=== PATIENT | female | born 1995 | race Two or more races ===

== ENCOUNTER 2017-05-16 11:14 | Emergency (ER) | payer MEDICAID ==
[2017-05-16 11:25] VITALS: BP 125/103; PULSE 100; RESP 18; TEMP 99.3; O2SAT 97
[2017-05-16] MEDS ORDERED: ONDANSETRON DISINTEGRATING 4 MG TAB ONE (11:35)
--- NOTE | 2017-05-16 12:46 | EDPHY ---
General Narrative: CHIEF COMPLAINT: Nausea, possible HISTORY OF PRESENT ILLNESS: Patient complains of 3 days history of nausea but no vomiting. No abdominal pain. Gradual onset. Constant duration. She is concerned that she may be , but her last menstrual period was approximately 2-3 weeks ago. He has had subjective fever x1 day. Did not measure this. No sweating. No night chills. No chest pain. No shortness of breath. No urinary complaints. No other associated complaints or modifying factors. REVIEW OF SYSTEMS: Ten systems reviewed and are negative unless otherwise noted in the HPI PCP: None SPECIALISTS: None PAST MEDICAL HISTORY: Denies any medical history. No previous pregnancies PAST SURGICAL HISTORY: None SOCIAL HISTORY: Nonsmoker. No alcohol or illicit substance use. FAMILY HISTORY: Noncontributory EXAMINATION General Appearance: Alert, no distress Head: normocephalic, atraumatic Eyes: Pupils equal and round, no conjunctival pallor or injection. No icterus ENT, Mouth: Mucous membranes moist. Airway patent Neck: Normal inspection, supple, non-tender Respiratory: Lungs are clear to auscultation Cardiovascular: Regular rate and rhythm. No murmur Gastrointestinal: Abdomen is soft and nontender. No distention. No guarding. No rigidity. No CVA tenderness. Benign abdominal examination Skin: Warm and dry, no rash. No petechiae or purpura Extremities: Nontender, no pedal edema Psychiatric: Mood and affect normal DIFFERENTIAL DIAGNOSES: Including but not limited to gastritis, cholecystitis, cholelithiasis, nausea vomiting, MDM: 12:45 p.m. Nausea with no vomiting. No abdominal pain. Negative urine test. Negative urine dip. Symptoms are completely resolved after the Zofran ODT. I recommended an offer laboratory testing, but she is declining any further laboratory studies or test. She would like to be discharged home. I do feel she is stable discharge home given that she is completely symptom free at this time. I will provide her short duration of Zofran ODT prescription. ED precautions for any worsening symptoms, any abdominal pain. She is comfortable with this plan and discharged in stable condition - History Smoking Status: Never smoked - Objective Vital Signs: Initial Vital Signs Temperature (C) 99.3 F 05/16/17 11:22 Heart Rate 100 05/16/17 11:22 Respiratory Rate 18 05/16/17 11:22 Blood Pressure 125/103 H 05/16/17 11:22 O2 Sat (%) 97 05/16/17 11:22 O2 Delivery Mode Room Air Allergies/Adverse Reactions: No Known Allergies Allergy (Unverified 05/16/17 11:22) Home Medications: Medication Instructions Recorded Ondansetron Odt [Zofran Odt 4 mg 4 mg PO Q6 PRN #12 tab 05/16/17 (*)] Departure - Departure Disposition: Home, Routine, Self-Care Clinical Impression: Nausea Condition: Good Instructions: Acute Nausea and Vomiting (ED) Additional Instructions: 1. Zofran ODT as prescribed as needed 2. Contact the on-call primary care physician to establish and to be seen next week 3. Return to emergency department for any worsening symptoms, any abdominal pain or urinary complaints Referrals: NONE *PRIMARY CARE P,. [Primary Care Provider] - As per Instructions Gabriela Anders [place] [place] - As per Instructions [facility],. [Clinic] - As per Instructions Prescriptions: Ondansetron Odt [Zofran Odt 4 mg (*)] 4 mg PO Q6 PRN #12 tab PRN Reason: Nausea/Vomiting, Use 1st
== END 2017-05-16 13:18 | disposition home or self-care (01) ==
DX: R11.0 Nausea (principal)

== ENCOUNTER 2017-06-14 15:11 | Emergency (ER) | payer MEDICAID ==
[2017-06-14 15:31] VITALS: BP 126/60; PULSE 84; RESP 16; TEMP 98.4; O2SAT 97
[2017-06-14 15:41] LABS: COLOR AMBER; LEUKOCYTE ESTERASE,URINE 3+ (NEGATIVE); NITRITE,URINE POSITIVE (NEGATIVE)
[2017-06-14 16:00] LABS: BACTERIA 3+ /hpf (NONE SEEN); MUCUS TRACE /lpf (NONE-1+); WBC,URINE 50-182 /hpf (0-3)
--- NOTE | 2017-06-14 16:17 | EDPHY ---
H & P Smoking Status: Never smoked Time Seen by Provider: 06/14/17 16:15 HPI/ROS: CHIEF COMPLAINT: Left flank pain "I have a really bad urinary tract infection " HISTORY OF PRESENT ILLNESS: 22-year-old immunocompetent female complaining of 2 days of increased for urinary frequency, dysuria, left flank pain. No nausea or vomiting. No abdominal pain. No fever or chills. No flu-like symptoms. No chest pain. No abdominal or back trauma. PRIMARY CARE PROVIDER: REVIEW OF SYSTEMS: A ten point review of systems was performed and is negative with the exception of the items mentioned in the HPI PAST MEDICAL & SURGICAL HISTORY: No pertinent medical or surgical history SOCIAL HISTORY:nonsmoker PHYSICAL EXAM (Prior to examination, patient consented to physical exam, hands were washed and my usual and customary physical exam procedures followed) 1) GENERAL: Well-developed, well-nourished, alert and oriented. Appears to be in no acute distress. 2) HEAD: Normocephalic, atraumatic 3) HEENT: Pupils equal, round, reactive to light bilaterally. Sclera anicteric. 4) NECK: Full range of motion, no meningeal signs. 5) LUNGS: Clear auscultation bilaterally, no wheezes, no rhonchi, no retractions. 6) HEART: Regular rate and rhythm, no murmur, no heave, no gallop. 7) ABDOMEN: No guarding, no rebound, no focal tenderness, negative McBurney's, negative Graham's, negative Rovsing's, negative peritoneal sign, 8) MUSCULOSKELETAL: Moving all extremities, no focal areas of tenderness, no obvious trauma. No peripheral edema or discoloration. 9) BACK: positive left CVA tenderness, no midline vertebral tenderness, no fluctuance, no step-off, no obvious trauma, no visual or palpable abnormality. 10) SKIN: No rash, no petechiae. 11) Psychiatric: Patient is oriented X 3, there is no agitation. DIFFERENTIAL DIAGNOSIS: in no particular include but limited to cystitis, pyelonephritis, perinephric abscess, nephrolithiasis (Little,Isela Laure) Constitutional: Initial Vital Signs Temperature (C) 36.9 C 06/14/17 15:23 Heart Rate 84 06/14/17 15:23 Respiratory Rate 16 06/14/17 15:23 Blood Pressure 126/60 H 06/14/17 15:23 O2 Sat (%) 97 06/14/17 15:23 Allergies/Adverse Reactions: No Known Allergies Allergy (Unverified 05/16/17 11:22) Home Medications: Medication Instructions Recorded Cephalexin [Keflex] 500 mg PO TID 7 Days cap 06/14/17 Phenazopyridine HCl [Pyridium] 200 mg PO PC #10 tab 06/14/17 MDM/Departure - [facility] ED Course/Re-evaluation: I feel the patient can be treated on an outpatient basis as I believe her to be a competent decision-maker, shows no signs of urosepsis, afebrile, no comorbid medical conditions, no vomiting, tolerating oral intake, doubt sepsis.. Nonetheless, I have provided acute urinary tract infection red flag signs and symptoms precautions, and reasons to return to the emergency department. She understands that this diagnosis is provisional and can never be 100% accurate. Usual and customary warnings were given concerning the clinical impression and all the patient's questions were answered. The patient was instructed to return to the emergency department should her symptoms worsen or return, or develop any new symptoms, otherwise to followup as directed in discharge instructions.Care of patient under supervision of secondary supervising physician Dr Li . (Isela Fitch) The patient was evaluated and managed by the physician diploma medical assistant. I have reviewed this chart and I agree with the findings and plan of care as documented , as indicated by my signature. I am the secondary supervising physician. ( Mindy Li) - Depart Disposition: Home, Routine, Self-Care Clinical Impression: Acute pyelonephritis Condition: Good Instructions: Kidney Infection (ED) Additional Instructions: Return to the ER immediately if you experience fevers/chills, flu like symptoms , inability to tolerate oral intake, nausea or vomiting, or any other symptoms that concern you. Prescriptions: Cephalexin [Keflex] 500 mg PO TID 7 Days cap Phenazopyridine HCl [Pyridium] 200 mg PO PC #10 tab Referrals: [facility],. [Clinic] - 2-3 days, call for appt.
== END 2017-06-14 16:35 | disposition home or self-care (01) ==
DX: N10 Acute pyelonephritis (principal); B96.20 Unspecified Escherichia coli [E. coli] as the cause of diseases classified elsewhere

== ENCOUNTER 2017-06-30 16:34 | Emergency (ER) | payer MEDICAID ==
[2017-06-30] MEDS ORDERED: NS 1,000 ML IV ONE (17:05)
[2017-06-30] MEDS ORDERED: ONDANSETRON 4 MG/2 ML VIAL IVP ONE (17:05)
--- NOTE | 2017-06-30 17:09 | EDPHY ---
H & P Time Seen by Provider: 06/30/17 16:51 HPI/ROS: CHIEF COMPLAINT: "I have a urinary tract infection and I want a test " HISTORY OF PRESENT ILLNESS: The patient is a 22-year-old female who presents to the emergency department with urinary tract type symptoms. She stated she had dysuria and frequency starting 4 days ago. She also states that her urine has become cloudy. She has had nausea with 1 episode of nonbloody emesis. She feels as though she has chills with a temperature but is not measured at home. The patient states she has mild discomfort in the left flank. Her last menstrual period was 05/23/2017. She is sexually active. REVIEW OF SYSTEMS: My complete review of systems is negative except as mentioned in the HPI. Past Medical/Surgical History: Includes previous pyelonephritis, urinary tract infection Past surgical history: Negative Social history: The patient does not smoke Smoking Status: Never smoked Physical Exam: Vitals noted. 38. 137/91, 108, 18, 98% on room air GENERAL: Well-appearing, in no acute distress, alert. HEENT: Eyes normal to inspection, normal pharynx, no signs of dehydration. NECK: No thyromegaly, no lymphadenopathy, supple. RESPIRATORY: Clear to auscultation bilaterally, no rales, rhonchi or wheezing. CVS: Regular rate and rhythm, no rubs, murmurs, or gallops. ABDOMEN: Soft, nontender, nondistended, no organomegaly. Benign. BACK: Normal to inspection, no CVA tenderness. Benign. SKIN: Normal color, no rash, warm, dry. No pallor. EXTREMITIES: No pedal edema, no calf tenderness, no Homans sign or cords, no joint swelling. NEURO/PSYCH: Alert and oriented, normal mood and affect, normal motor sensory exam. Constitutional: Initial Vital Signs Temperature (C) 38 C 06/30/17 16:45 Heart Rate 108 H 06/30/17 16:45 Respiratory Rate 18 06/30/17 16:45 Blood Pressure 137/91 H 06/30/17 16:45 O2 Sat (%) 98 06/30/17 16:45 O2 Delivery Mode Room Air Allergies/Adverse Reactions: No Known Allergies Allergy (Verified 06/30/17 16:44) Home Medications: Medication Instructions Recorded Cephalexin [Keflex (*)] 500 mg PO QID 7 Days cap 06/30/17 Ondansetron Odt [Zofran Odt 4 mg 4 mg PO Q4PRN PRN #7 tab 06/30/17 (*)] Phenazopyridine HCl [Pyridium] 100 mg PO TID #6 tab 06/30/17 Medical Decision Making ED Course/Re-evaluation: In the emergency department I discussed possible etiologies with the patient. I answered all her questions. IV was placed. Laboratory studies were ordered. Patient was given normal saline 1 L IV for hydration. She was given Zofran 4 mg IV for nausea. [place] [id number]. Her urine was positive. I discussed results with the patient. I answered all her questions. She is given Rocephin 1 g IV. Patient was given Toradol 30 mg IV and Pyridium orally. The patient was given warnings prior to leaving. She will return with worsening symptoms. She was given a prescription of Pyridium and Keflex. Differential Diagnosis: My differential includes but not limited to urinary tract infection, pyelonephritis, bacteremia, sepsis, , ectopic - Data Points Laboratory Results: Laboratory Results 06/30/17 17:17 06/30/17 17:17 06/30/17 06/30/17 06/30/17 17:17 17:17 17:17 WBC 13.54 10^3/uL H 10^3/uL (3.80-9.50) RBC 5.00 10^6/uL 10^6/uL (4.18-5.33) Hgb 13.0 g/dL g/dL (12.6-16.3) Hct 41.1 % % (38.0-47.0) MCV 82.2 fL fL (81.5-99.8) MCH 26.0 pg L pg (27.9-34.1) MCHC 31.6 g/dL L g/dL (32.4-36.7) RDW 15.2 % % (11.5-15.2) Plt Count 320 10^3/uL 10^3/uL (150-400) MPV 9.4 fL fL (8.7-11.7) Neut % (Auto) 79.3 % H % (39.3-74.2) Lymph % (Auto) 14.5 % L % (15.0-45.0) [place] % (Auto) 4.7 % % (4.5-13.0) Eos % (Auto) 0.7 % % (0.6-7.6) Baso % (Auto) 0.4 % % (0.3-1.7) Nucleat RBC Rel Count 0.0 % % (0.0-0.2) Absolute Neuts (auto) 10.72 10^3/uL H 10^3/uL (1.70-6.50) Absolute Lymphs (auto) 1.97 10^3/uL 10^3/uL (1.00-3.00) Absolute Monos (auto) 0.64 10^3/uL 10^3/uL (0.30-0.80) Absolute Eos (auto) 0.09 10^3/uL 10^3/uL (0.03-0.40) Absolute Basos (auto) 0.06 10^3/uL 10^3/uL (0.02-0.10) Absolute Nucleated RBC 0.00 10^3/uL 10^3/uL (0-0.01) Immature Gran % 0.4 % % (0.0-1.1) Immature Gran # 0.06 10^3/uL 10^3/uL (0.00-0.10) Sodium 142 mEq/L mEq/L (134-144) Potassium 3.8 mEq/L mEq/L (3.5-5.2) Chloride 102 mEq/L mEq/L (97-110) Carbon Dioxide 28 mEq/l mEq/l (22-31) Anion Gap 12 mEq/L mEq/L (8-16) BUN 13 mg/dL mg/dL (7-23) Creatinine 1.0 mg/dL mg/dL (0.6-1.0) Estimated GFR > 60 Glucose 117 mg/dL H mg/dL (70-100) Calcium 9.3 mg/dL mg/dL (8.5-10.4) Beta HCG, Qual NEGATIVE Urine Color Urine Appearance Urine pH Ur Specific [place] Urine Protein Urine Ketones Urine Blood Urine Nitrate Urine Bilirubin Urine Urobilinogen Ur Leukocyte Esterase Urine RBC Urine WBC Ur Epithelial Cells Urine Bacteria Urine Mucus Urine Glucose Urine Test 06/30/17 06/30/17 17:17 17:17 WBC RBC Hgb Hct MCV MCH MCHC RDW Plt Count MPV Neut % (Auto) Lymph % (Auto) [place] % (Auto) Eos % (Auto) Baso % (Auto) Nucleat RBC Rel Count Absolute Neuts (auto) Absolute Lymphs (auto) Absolute Monos (auto) Absolute Eos (auto) Absolute Basos (auto) Absolute Nucleated RBC Immature Gran % Immature Gran # Sodium Potassium Chloride Carbon Dioxide Anion Gap BUN Creatinine Estimated GFR Glucose Calcium Beta HCG, Qual Urine Color YELLOW Urine Appearance HAZY Urine pH 7.0 (5.0-7.5) Ur Specific [place] 1.011 (1.002-1.030) Urine Protein 1+ H (NEGATIVE) Urine Ketones NEGATIVE (NEGATIVE) Urine Blood NEGATIVE (NEGATIVE) Urine Nitrate NEGATIVE (NEGATIVE) Urine Bilirubin NEGATIVE (NEGATIVE) Urine Urobilinogen NEGATIVE EU EU (0.2-1.0) Ur Leukocyte Esterase 2+ H (NEGATIVE) Urine RBC NONE SEEN /hpf /hpf (0-3) Urine WBC 25-50 /hpf H /hpf (0-3) Ur Epithelial Cells TRACE /lpf /lpf (NONE-1+) Urine Bacteria 3+ /hpf H /hpf (NONE SEEN) Urine Mucus TRACE /lpf /lpf (NONE-1+) Urine Glucose NEGATIVE (NEGATIVE) Urine Test TNP Medications Given: Discontinued Medications Sodium Chloride (Ns) 1,000 mls @ 0 mls/hr IV EDNOW ONE; Wide Open PRN Reason: Protocol Stop: 06/30/17 17:06 Last Admin: 06/30/17 17:15 Dose: 1,000 mls Ceftriaxone Sodium/Dextrose (Rocephin 1 Gm (Premix)) 50 mls @ 100 mls/hr IV EDNOW ONE PRN Reason: Protocol Stop: 06/30/17 18:37 Last Admin: 06/30/17 18:30 Dose: 50 mls Ketorolac Tromethamine (Toradol) 30 mg IVP EDNOW ONE Stop: 06/30/17 18:09 Last Admin: 06/30/17 18:31 Dose: 30 mg Ondansetron HCl (Zofran) 4 mg IVP EDNOW ONE Stop: 06/30/17 17:06 Last Admin: 06/30/17 17:15 Dose: 4 mg Phenazopyridine HCl (Pyridium) 200 mg PO EDNOW ONE Stop: 06/30/17 18:10 Last Admin: 06/30/17 18:31 Dose: 200 mg Departure - Departure Disposition: Home, Routine, Self-Care Clinical Impression: Urinary tract infection Qualifiers: Urinary tract infection type: acute cystitis Hematuria presence: without hematuria Qualified Code(s): N30.00 - Acute cystitis without hematuria Condition: Good Instructions: Ceftriaxone (By injection), Urinary Tract Infection in Women (ED) , Dysuria (ED) Additional Instructions: Take your entire course of antibiotics. Return with increasing flank pain, abdominal pain, repeated vomiting, or any other concerns. Referrals: Kedar Schwartz MD [Medical Doctor] - 3-4 days, if not improved Prescriptions: Cephalexin [Keflex (*)] 500 mg PO QID 7 Days cap Ondansetron Odt [Zofran Odt 4 mg (*)] 4 mg PO Q4PRN PRN #7 tab PRN Reason: For Nausea & Vomiting Phenazopyridine HCl [Pyridium] 100 mg PO TID #6 tab
[2017-06-30 17:26] LABS: % IMMATURE GRANULYOCYTES 0.4 % (0.0-1.1); ABSOLUTE IMMATURE GRANULOCYTES 0.06 10^3/uL (0.00-0.10); ADD DIFF? NO; ADD MORPH? NO; ADD SCAN? NO; ATYPICAL LYMPHOCYTE FLAG 0 (0-99); FRAGMENT RBC FLAG 0 (0-99); HEMATOCRIT 41.1 % (38.0-47.0); LEFT SHIFT FLG 0 (0-99); LIPEMIA HEMOLYSIS FLAG 80 (0-99); MEAN CELL HEMOGLOBIN CONCENTR. 31.6 g/dL (32.4-36.7); MEAN CELL VOLUME 82.2 fL (81.5-99.8); MEAN PLATELET VOLUME 9.4 fL (8.7-11.7); PLATELET CLUMPS FLAG 0 (0-99); PLATELET COUNT 320 10^3/uL (150-400); RED CELL DISTRIBUTION WIDTH 15.2 % (11.5-15.2)
[2017-06-30 17:33] LABS: COLOR YELLOW; LEUKOCYTE ESTERASE,URINE 2+ (NEGATIVE); NITRITE,URINE NEGATIVE (NEGATIVE)
[2017-06-30 17:37] LABS: ANION GAP 12 mEq/L (8-16); CALCIUM 9.3 mg/dL (8.5-10.4); CARBON DIOXIDE 28 mEq/l (22-31); CHLORIDE 102 mEq/L (97-110); GLOMERULAR FILTRATION RATE > 60; GLUCOSE 117 mg/dL (70-100); POTASSIUM 3.8 mEq/L (3.5-5.2); SODIUM 142 mEq/L (134-144)
[2017-06-30 17:40] LABS: BACTERIA 3+ /hpf (NONE SEEN); MUCUS TRACE /lpf (NONE-1+); RBC,URINE NONE SEEN /hpf (0-3); WBC,URINE 25-50 /hpf (0-3)
[2017-06-30] MEDS ORDERED: KETOROLAC 30 MG/1 ML SDV IVP ONE (18:08)
[2017-06-30] MEDS ORDERED: PHENAZOPYRIDINE HCL 200 MG TAB PO ONE (18:09)
[2017-06-30 19:04] VITALS: BP 119/67; PULSE 100; RESP 16; TEMP 98.1; O2SAT 93
== END 2017-06-30 19:02 | disposition home or self-care (01) ==
DX: N30.00 Acute cystitis without hematuria (principal); B96.20 Unspecified Escherichia coli [E. coli] as the cause of diseases classified elsewhere; E86.9 Volume depletion, unspecified
CPT/HCPCS: 96365; J0696; J1885; J2405

== ENCOUNTER 2018-08-17 14:46 | Emergency (ER) | payer MEDICAID ==
[2018-08-17] MEDS ORDERED: NS 1,000 ML IV ONE (15:52)
--- NOTE | 2018-08-17 15:52 | EDPHY ---
H & P Time Seen by Provider: 08/17/18 15:35 HPI/ROS: CHIEF COMPLAINT: Abdominal pain, flank pain HISTORY OF PRESENT ILLNESS: The patient is a 23-year-old female with previous history of pyelonephritis who presents to the emergency department right flank pain and abdominal pain. Her symptoms started yesterday. She has had mild frequency but no dysuria or hematuria. Patient has had no nausea vomiting. No reported fever or chills. No diarrhea. Patient still has an appetite. Patient states that she occasionally feels"balls in my stomach."These are waxing waning. They are not currently present. Patient's last menstrual period is currently occuring. Previous period was 1 month prior. She is sexually active. REVIEW OF SYSTEMS: 10 systems were reveiwed and are negative with the exception of the elements mentioned in the history of present illness. Past Medical/Surgical History: Previous pyelonephritis Social history: Patient does not smoke Smoking Status: Never smoked Physical Exam: 37.2, 123/75, 104, 18, 96% on room air GENERAL: Well-appearing, in no acute distress, alert. HEENT: Eyes normal to inspection, normal pharynx, no signs of dehydration. NECK: Normal, supple. RESPIRATORY: Clear to auscultation bilaterally, no rales, rhonchi or wheezing. CVS: Regular rate and rhythm, no rubs, murmurs, or gallops. ABDOMEN: Soft, mild right lower quadrant tenderness to palpation with no rebound or guarding, nondistended, no organomegaly. BACK: Normal to inspection, no CVA tenderness. SKIN: Normal color, no rash, warm, dry. No pallor. EXTREMITIES: No pedal edema, no calf tenderness, no Homans sign or cords, no joint swelling. NEURO/PSYCH: Alert and oriented, normal mood and affect, normal motor sensory exam. Constitutional: Initial Vital Signs Temperature (C) 37.2 C 08/17/18 14:57 Heart Rate 104 H 08/17/18 14:57 Respiratory Rate 18 08/17/18 14:57 Blood Pressure 123/75 H 08/17/18 14:57 O2 Sat (%) 96 08/17/18 14:57 O2 Delivery Mode Room Air Allergies/Adverse Reactions: No Known Allergies Allergy (Verified 08/17/18 14:56) Home Medications: Medication Instructions Recorded Hydrocodone/APAP 5/325 [[place] 1 - 2 tab PO Q4 #13 tab 08/17/18 5/325 (RX)] Ondansetron Odt [Zofran Odt 4 mg 4 mg PO Q4PRN PRN #7 tab 08/17/18 (*)] Medical Decision Making - Diagnostics Imaging Results: Imaging Impressions Abdomen Ultrasound 08/17/18 15:52 Impression: No indirect sonographic evidence for appendicitis. 2. Ultrasound Pelvis Complete (Transabdominal and Endovaginal), 16:22 History: RLQ Abd Pain, Possible appendicitis Comparison: None. Technique: Transabdominal and endovaginal ultrasound images were obtained. Endovaginal images obtained for better evaluation of the uterine myometrium and adnexa. Duplex/Doppler imaging of adnexa could not be performed due to the patient's large body habitus and ovarian position.. Findings: Uterus measures 6.5 cm x 3.2 cm x 4.9 cm. Endometrial thickness is 1.4 cm. No uterine leiomyomata are present. Right ovary could not be separately identified from a large simple cyst in the right adnexal area. This cyst measures 10.9 x 8.5 x 11.9 cm.. Left ovary measures 2.1 cm x 3.4 cm x 1.6 cm. No left adnexal mass or cyst is identified. There is no free fluid in the pelvis. Impression: 12 cm right adnexal simple cyst, likely an ovarian cyst. Results called to Dr. Bojorquez at 16:55 PM. Pelvic/Renal Ultrasound 08/17/18 15:52 Impression: No indirect sonographic evidence for appendicitis. 2. Ultrasound Pelvis Complete (Transabdominal and Endovaginal), 16:22 History: RLQ Abd Pain, Possible appendicitis Comparison: None. Technique: Transabdominal and endovaginal ultrasound images were obtained. Endovaginal images obtained for better evaluation of the uterine myometrium and adnexa. Duplex/Doppler imaging of adnexa could not be performed due to the patient's large body habitus and ovarian position.. Findings: Uterus measures 6.5 cm x 3.2 cm x 4.9 cm. Endometrial thickness is 1.4 cm. No uterine leiomyomata are present. Right ovary could not be separately identified from a large simple cyst in the right adnexal area. This cyst measures 10.9 x 8.5 x 11.9 cm.. Left ovary measures 2.1 cm x 3.4 cm x 1.6 cm. No left adnexal mass or cyst is identified. There is no free fluid in the pelvis. Impression: 12 cm right adnexal simple cyst, likely an ovarian cyst. Results called to Dr. Bojorquez at 16:[address] 08/17/18 17:38 Impression: 1. The large right adnexal cyst may represent an isolated torsed cyst or sequela of ovarian torsion. A cystic lesion between this and the right uterine horn may represent hydrosalpinx. 2. Steatosis of the liver in this obese 23-year-old patient. Results discussed with Dr. Bojorquez at 6:21 PM. General information for patients regarding this examination can be found at [email or web address]. If you have questions or comments about this report, please contact me at (hospital) or [phone] (cell). ED Course/Re-evaluation: In the emergency department I discussed possible etiologies with the patient. I answered all her questions. Initial UA was notable for trace leuk esterase. An IV was placed. Laboratory studies were ordered. Patient's white count was elevated at 13.5. Chemistry panel is unremarkable. Normal creatinine. is negative. Ultrasound: Please refer the dictated report. The appendix was not visualized. The ovarian was partially evaluated due to the depth of the ovary and the patient's body habitus. There is a 12 cm ovarian cyst on the right. Radiologist cannot evaluate for torsion because he could not perform Doppler. I rechecked the patient. She continued to have right lower quadrant pain. Because of this I ordered a CT with IV contrast. I explained this to the patient as well as her friend who was present. CT of the abdomen pelvis: Please refer the dictated report by Dr. Lugo. There is a large right adnexal cyst may represent an isolated torsed cyst or sequelae of ovarian torsion. His a cystic lesion between this and the right uterine horn which may represent hydrosalpinx. Patient has enlarged liver. I discussed case with Dr. Mcintyre. He came to the emergency department to evaluate the patient. He did not feel the patient needed to go to the OR this evening. He requests the patient be discharged and follow up with his clinic on Saturday. He requested I write the patient for pain medication and give her a work excuse. These were completed. The patient was given warnings prior to leaving. She will return with worsening symptoms. Differential Diagnosis: My differential includes but is not limited to pyelonephritis, urinary tract infection, kidney stones, appendicitis, ovarian cyst, ovarian torsion, , ectopic - Data Points Laboratory Results: Laboratory Results 08/17/18 16:45 08/17/18 16:11 08/17/18 08/17/18 08/17/18 16:45 16:11 16:11 WBC 13.50 10^3/uL H 10^3/uL (3.80-9.50) RBC 4.62 10^6/uL 10^6/uL (4.18-5.33) Hgb 12.4 g/dL L g/dL (12.6-16.3) Hct 38.5 % % (38.0-47.0) MCV 83.3 fL fL (81.5-99.8) MCH 26.8 pg L pg (27.9-34.1) MCHC 32.2 g/dL L g/dL (32.4-36.7) RDW 13.9 % % (11.5-15.2) Plt Count 308 10^3/uL 10^3/uL (150-400) MPV 9.3 fL fL (8.7-11.7) Neut % (Auto) 71.8 % % (39.3-74.2) Lymph % (Auto) 20.6 % % (15.0-45.0) [place] % (Auto) 5.7 % % (4.5-13.0) Eos % (Auto) 0.8 % % (0.6-7.6) Baso % (Auto) 0.4 % % (0.3-1.7) Nucleat RBC Rel Count 0.0 % % (0.0-0.2) Absolute Neuts (auto) 9.68 10^3/uL H 10^3/uL (1.70-6.50) Absolute Lymphs (auto) 2.78 10^3/uL 10^3/uL (1.00-3.00) Absolute Monos (auto) 0.77 10^3/uL 10^3/uL (0.30-0.80) Absolute Eos (auto) 0.11 10^3/uL 10^3/uL (0.03-0.40) Absolute Basos (auto) 0.06 10^3/uL 10^3/uL (0.02-0.10) Absolute Nucleated RBC 0.00 10^3/uL 10^3/uL (0-0.01) Immature Gran % 0.7 % % (0.0-1.1) Immature Gran # 0.10 10^3/uL 10^3/uL (0.00-0.10) Sodium 136 mEq/L mEq/L (135-145) Potassium 4.6 mEq/L mEq/L (3.5-5.2) Chloride 104 mEq/L mEq/L (97-110) Carbon Dioxide 22 mEq/l mEq/l (22-31) Anion Gap 10 mEq/L mEq/L (6-14) BUN 17 mg/dL mg/dL (7-23) Creatinine 0.9 mg/dL mg/dL (0.6-1.0) Estimated GFR > 60 Glucose 91 mg/dL mg/dL (70-100) Calcium 9.5 mg/dL mg/dL (8.5-10.4) Beta HCG, Qual NEGATIVE Specimen Hemolysis 126 Urine Color Urine Appearance Urine pH Ur Specific [place] Urine Protein Urine Ketones Urine Blood Urine Nitrate Urine Bilirubin Urine Urobilinogen Ur Leukocyte Esterase Urine RBC Urine WBC Ur Epithelial Cells Urine Glucose 08/17/18 08/17/18 16:11 14:55 WBC REJ RBC Not Reported Hgb Not Reported Hct Not Reported MCV Not Reported MCH Not Reported MCHC Not Reported RDW Not Reported Plt Count Not Reported MPV Not Reported Neut % (Auto) Not Reported Lymph % (Auto) Not Reported [place] % (Auto) Not Reported Eos % (Auto) Not Reported Baso % (Auto) Not Reported Nucleat RBC Rel Count Not Reported Absolute Neuts (auto) Not Reported Absolute Lymphs (auto) Not Reported Absolute Monos (auto) Not Reported Absolute Eos (auto) Not Reported Absolute Basos (auto) Not Reported Absolute Nucleated RBC Not Reported Immature Gran % Not Reported Immature Gran # Not Reported Sodium Potassium Chloride Carbon Dioxide Anion Gap BUN Creatinine Estimated GFR Glucose Calcium Beta HCG, Qual Specimen Hemolysis Urine Color YELLOW Urine Appearance CLEAR Urine pH 5.0 (5.0-7.5) Ur Specific [place] 1.020 (1.002-1.030) Urine Protein 1+ H (NEGATIVE) Urine Ketones NEGATIVE (NEGATIVE) Urine Blood NEGATIVE (NEGATIVE) Urine Nitrate NEGATIVE (NEGATIVE) Urine Bilirubin NEGATIVE (NEGATIVE) Urine Urobilinogen NEGATIVE EU EU (0.2-1.0) Ur Leukocyte Esterase TRACE H (NEGATIVE) Urine RBC 1-3 /hpf /hpf (0-3) Urine WBC 1-3 /hpf /hpf (0-3) Ur Epithelial Cells 1+ /lpf /lpf (NONE-1+) Urine Glucose NEGATIVE (NEGATIVE) Medications Given: Discontinued Medications Sodium Chloride (Ns) 1,000 mls @ 0 mls/hr IV EDNOW ONE; Wide Open PRN Reason: Protocol Stop: 08/17/18 15:53 Last Admin: 08/17/18 16:07 Dose: 1,000 mls Departure - Departure Disposition: Home, Routine, Self-Care Clinical Impression: Abdominal pain Qualifiers: Abdominal location: right lower quadrant Qualified Code(s): R10.31 - Right lower quadrant pain Condition: Good Instructions: Abdominal Pain (ED) Additional Instructions: You have had a discussion with Dr. Mcintyre. He requested that he see you in clinic on Saturday. Call first thing to make an appointment. Return the emergency department if you developed increasing abdominal pain, fever, vomiting or any other concerns. Referrals: Aubrey Mcintyre MD [Medical Doctor] - 08/19/18 Stand Alone Forms: Work Excuse Prescriptions: Hydrocodone/APAP 5/325 [[place] 5/325 (RX)] 1 - 2 tab PO Q4 #13 tab Ondansetron Odt [Zofran Odt 4 mg (*)] 4 mg PO Q4PRN PRN #7 tab PRN Reason: For Nausea & Vomiting
[2018-08-17 16:50] LABS: PLATELET COUNT 308 10^3/uL (150-400)
[2018-08-17] MEDS ORDERED: IOPAMIDOL (ISOVUE 370) 100 ML BTL IV ONE (17:46)
[2018-08-17 18:06] VITALS: BP 131/88
== END 2018-08-17 19:29 | disposition home or self-care (01) ==
DX: R10.31 Right lower quadrant pain (principal); N83.291 Other ovarian cyst, right side
CPT/HCPCS: Q9967

== ENCOUNTER 2018-08-19 14:55 | Day surgery (SDC) | payer MEDICAID ==
[2018-08-19] MEDS ORDERED: ceFAZolin 2 GM/DEXTROSE 100 ML IV ONE (15:09)
--- NOTE | 2018-08-19 15:09 | PDGENHP ---
History and Physical - Chief Complaint Adnexal mass - History of Present Illness Mary Jo is a 23 yo nulliparous female who I saw in the ER on 08/17/18 for nagging right flank and lower back pain of a few days' duration. She has a h/o pyelonephritis and thought perhaps this was similar. Came into the ER and US showed large 12cm right adnexal mass - likely simple ovarian cyst, unclear doppler flow due to patient's habitus. She subsequently had CT abd/pelvis which confirmed ovarian cyst, also unclear which regard to torsion. Pt's pain was not consistently with torsion so we elected to plan LS drainage and cystectomy on 08/19/18. History Information - Allergies/Home Medication List Allergies/Adverse Reactions: No Known Allergies Allergy (Verified 08/17/18 14:56) I have personally reviewed and updated: family history, medical history, social history, surgical history Past Medical History: H/o Pyelonephritis, morbid obesity, FOSTER noted on CT scan in the ER 08/17/18, subcutaneous lipomas - Surgical History Additional surgical history: None - Social History Smoking Status: Never smoked Review of Systems Review of Systems: ROS: 10pt was reviewed & negative except for what was stated in HPI & below Physical Exam Physical Exam: NAD, Belly is soft, non-distended TTP deep palpation in lower quadrants Non-acute, no rebound, no guarding Assessment & Plan Assessment: Preop: Diagnostic laparoscopy, Laparoscopic ovarian drainage/cystectomy - Routine preop orders, weight-based Ancef. - Type and Screen STAT no admission to PREOP. - Likely home from PACU. STEVEN
[2018-08-19] MEDS ORDERED: LR 1,000 ML IV ONE (15:19)
[2018-08-19] MEDS ORDERED: LIDOCAINE 1% 2 ML INJ ID PRN (15:19)
[2018-08-19] MEDS ORDERED: SILVER NITRATE APPLICATOR 1 APPL TP ONE (15:56)
[2018-08-19] MEDS ORDERED: BUPIVACAINE/EPI 0.5% 30 ML SDV ONE (15:56)
--- NOTE | 2018-08-19 16:02 | PDANEPAE ---
ANE History of Present Illness right ovarian cyst ANE Past Medical History - Cardiovascular History Hx Hypertension: No Hx Arrhythmias: No Hx Chest Pain: No Hx Coronary Artery / Peripheral Vascular Disease: No Hx CHF / Valvular Disease: No Hx Palpitations: No - Pulmonary History Hx COPD: No Hx Asthma/Reactive Airway Disease: No Hx Recent Upper Respiratory Infection: No Hx Oxygen in Use at Home: No Hx Sleep Apnea: No Sleep Apnea Screening Result - Last Documented: Negative - Neurologic History Hx Cerebrovascular Accident: No Hx Seizures: No Hx Dementia: No - Endocrine History Hx Diabetes: No Hypothyroid: No Hyperthyroid: No Obesity: moderate - Renal History Hx Renal Disorders: Yes Renal History Comment: kidney infection 2017 - Liver History Hx Hepatic Disorders: No - Neurological & Psychiatric Hx Hx Neurological and Psychiatric Disorders: No - Cancer History Hx Cancer: No - Congenital Disorder History Hx Congenital Disorders: Yes 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 - GI History GERD: no Hx Gastrointestinal Disorders: No - Chronic Pain History Chronic Pain: No - Surgical History Prior Surgeries: none ANE Review of Systems Review of systems is: negative Review of Systems: - Exercise capacity METS (RN): 4 METS ANE Patient History - Allergies Allergies/Adverse Reactions: No Known Allergies Allergy (Verified 08/17/18 14:56) - Home Medications Home medications: home medication list seen and reviewed - NPO status NPO Status: no food or drink >8 hours NPO Since - Liquids (Date): 08/19/18 NPO Since - Liquids (Time): 08:00 NPO Since - Solids (Date): 08/19/18 NPO Since - Solids (Time): 08:00 - Anes Hx Anes Hx: no prior problems - Smoking Hx Smoking Status: Never smoked Marijuana use: No - Alcohol Use Alcohol Use: None - Family Anes Hx Family Anes Hx: none Family Hx Anesthesia Complications: none ANE Labs/Vital Signs - Vital Signs Blood Pressure: 117/78 Heart Rate: 108 Respiratory Rate: 24 O2 Sat (%): 96 Height: 160.02 cm Weight: 95.708 kg ANE Physical Exam - Airway Neck exam: FROM Mallampati Score: Class 2 Mouth exam: normal dental/mouth exam - Pulmonary Pulmonary: no respiratory distress, clear to auscultation - Cardiovascular Cardiovascular: regular rate and rhythym, no murmur, rub, or gallop ANE Anesthesia Plan Anesthesia Plan: general endotracheal anesthesia
[2018-08-19] MEDS ORDERED: MIDAZOLAM 2 MG/2 ML VIAL IVP ONE (16:04)
[2018-08-19] MEDS ORDERED: MIDAZOLAM 2 MG/2 ML VIAL ONE (16:05)
[2018-08-19] MEDS ORDERED: ROCURONIUM 50 MG/5 ML VIAL ONE (16:12)
[2018-08-19] MEDS ORDERED: PROPOFOL 200 MG/20 ML VIAL ONE (16:12)
[2018-08-19] MEDS ORDERED: fentaNYL 250 MCG/5 ML INJ ONE (16:12)
[2018-08-19] MEDS ORDERED: LIDOCAINE 2% 5 ML SDV ONE (16:15)
[2018-08-19] MEDS ORDERED: NALOXONE HCL 0.4 MG/ML INJ IVP PRN (17:13)
[2018-08-19] MEDS ORDERED: HYDROmorphONE/DILAUDID 2 MG/ML INJ IVP PRN (17:13)
[2018-08-19] MEDS ORDERED: fentaNYL 100 MCG/2 ML INJ IVP PRN (17:13)
[2018-08-19] MEDS ORDERED: MEPERIDINE 25 MG/0.5 ML AMP IVP PRN (17:13)
[2018-08-19] MEDS ORDERED: LR 500 ML IV PRN (17:13)
[2018-08-19] MEDS ORDERED: PROMETHAZINE HCL 25 MG/ML INJ IVP PRN (17:13)
--- NOTE | 2018-08-19 17:14 | POSTANESTH ---
Post Anesthetic Evaluation Cardiovascular Status: Normal, Stable Respiratory Status: Normal, Stable Level of Consciousness/Mental Status: Can Participate in Eval Pain Control: Adequate, Prn Tx Ordered Nausea/Vomiting Control: Adequate, Prn Tx Ordered Complications Possibly Related to Anesthesia: None Noted
[2018-08-19] MEDS ORDERED: NEOSTIGMINE METHYLSULFATE 5 MG/5 ML SYR ONE (17:17)
[2018-08-19] MEDS ORDERED: GLYCOPYRROLATE 0.2 MG/1 ML VIAL ONE ×2 (17:17)
--- NOTE | 2018-08-19 17:37 | POSTOPPROG ---
Post Op Note Date of Operation: 08/19/18 Surgeon: Aubrey Mcintyre Twister Hand: Yulisa Mosley Anesthesia: GET(General Endotracheal) Pre-op Diagnosis: Adnexal mass, pelvic pain Post-op Diagnosis: Right paratubal cyst Procedure: Diagnostic laparoscopy, drainage of right paratubal cyst,right salingectomy Findings: 12cm right paratubal cyst, large, congested tube, normal right ovary Inf/Abcess present in the surg proc area at time of surgery?: No EBL: Minimal (5cc) Complications: None Specimen(s): Right tube and associated paratubal cyst
--- NOTE | 2018-08-19 17:55 | SUROPNOTE ---
[facility] Operative Report - Surgery Date of Operation: 08/19/18 Surgeon: Aubrey Mcintyre Medical Transport Specialist: Yulisa Mosley Anesthesia: GET(General Endotracheal) Pre-op Diagnosis: Adnexal mass, pelvic pain Post-op Diagnosis: Right paratubal cyst Procedure: Diagnostic laparoscopy, drainage of right paratubal cyst, right salpingectomy Findings: 12cm right paratubal cyst, large, congested tube, normal right ovary Inf/Abcess present in the surg proc area at time of surgery?: No EBL: Minimal (5cc) Complications: None Specimen(s): Right tube and associated paratubal cyst Technique: The patient was brought to the operating room where she was ergonomically positioned in low lithotomy position in Alfredo stirrups. General anesthesia was established without issue. The arms were tucked at the patients side with care to not generate any pressure points. She was prepped and draped in standard fashion after a time-out was performed. An acorn was placed on the cervix to assist with uterine manipulation. A cummings catheter was placed under sterile conditions. Weight-based Ancef was given prior to skin incision. A 5mm vertical incision was made in the base of the umbilicus after injection of local anesthetic. The anterior abdominal wall was lifted with penetrating towel clamps and the Veress needle was carefully inserted into the abdomen at a 45% angle from vertical. We were not able to get into her peritoneal cavity after two attempts with the Veress at the umbilicus, so I changed to a LUQ entry , Local injected again and stab incision made with the scalpel and the Veress inserted at the MCL 1-2 finger-breadths below the lowest rib. Intraabdominal placement was confirmed with hanging drop test and low initial insufflation pressures. Once the abdomen was adequately insufflated with CO2 gas the Veress was removed and a 5mm Optiview non-bladed trocar was introduced into the abdomen via the umbilical incision without complication under direct visualization with the camera within the trocar. Once inside a brief scan of the abdomen revealed no injuries upon entry and findings noted as above. At this point 2 additional 5mm ports were placed in the bilateral lower quadrants after injection of local. Additional pictures were taken of intra-abdominal organs/structures as noted in findings. We began by examining this large cyst and determined that the cyst itself was eminating from the right tube, not from the right ovary. The tube was congested , purple, did seem to be torsed to some degree. Washings were taken prior to cyst rupture and sent for cytology. Next we made a stab incision in the cyst and the suction telecommunications line mechanic was immediately inserted into the cyst to drain all fluid, very little spillage into the abdomen. The cyst was decompressed and then elevated so that we could amputate the cyst with associated tube. The right tube was so distorted and abnormal, and the cyst seemed to originate from so close to the tube itself, that I did not feel it was safe to try to remove just the cyst and not the tube - so a salpingectomy was performed with the Ligasure. Once the specimen was removed via the RLQ skin incision without the use of a bag. To conclude the pelvis was copiously irrigated and complete hemostasis was noted, even with lowered intra-abdominal pressure. All trocars were removed, gas was allowed to escape the abdomen, and skin incisions closed with single subcuticular stitches of 4-0 monocryl and then covered with Dermabond. The pt was extubated uneventfully and taken to the PACU in stable condition. Lap, needle and instrument counts were announced as correct at the conclusion of the case. Cummings was removed in the OR. I was scrubbed and present for the entire procedure.
[2018-08-19 21:00] VITALS: BP 134/80
== END 2018-08-19 21:04 | disposition home or self-care (01) ==
LOC: FSGY 14:55 → F3E 14:55 → UNDOADMOB 14:55 → EDSTATUS 16:15 → UNDODISOB 21:04 → FSGY 21:04
PROVIDERS: ATTEND Obstetrics & Gynecology
PROC: 0W9G4ZX Drainage of Peritoneal Cavity, Percutaneous Endoscopic Approach, Diagnostic (ICD-10-PCS; principal; 2018-08-19 16:15)
PROC: 0UB04ZX Excision of Right Ovary, Percutaneous Endoscopic Approach, Diagnostic (ICD-10-PCS; principal; 2018-08-19 16:15)
PROC: 0UT54ZZ Resection of Right Fallopian Tube, Percutaneous Endoscopic Approach (ICD-10-PCS; principal; 2018-08-19 16:15)
DX: N83.8 Other noninflammatory disorders of ovary, fallopian tube and broad ligament (principal); E66.01 Morbid (severe) obesity due to excess calories; Z68.37 Body mass index [BMI] 37.0-37.9, adult
CPT/HCPCS: J0690; J2250; J2704; J2710; J3010

== ENCOUNTER 2018-12-09 10:01 | Emergency (ER) | payer MEDICAID ==
[2018-12-09] MEDS ORDERED: NS 1,000 ML IV ONE (10:26)
--- NOTE | 2018-12-09 10:26 | EDPHY ---
H & P Stated Complaint: vaginal bleeding, confusion, paranoia Time Seen by Provider: 12/09/18 10:26 HPI/ROS: CHIEF COMPLAINT: Vaginal bleeding, confusion and paranoia HISTORY OF PRESENT ILLNESS: The patient is brought in by friend of the family with a 1 month history of dysfunctional uterine bleeding. The patient is also been exhibiting symptoms of confusion and paranoia. Per report from the patient 's mother that she has had bouts of paranoia and confusion episodically in the past. She has not receive regular psychiatric care. The patient states that she has never been on psychiatric medications. The patient does report heavy vaginal bleeding intermittently over the past 20-30 days. She reports associated lightheadedness and dizziness. She denies acute abdominal pain. The patient denies any drug or alcohol use. She takes no medications currently. REVIEW OF SYSTEMS: A comprehensive 10 point review of systems is otherwise negative aside from elements mentioned in the history of present illness. Source: Patient Exam Limitations: No limitations - Personal History Current Tetanus/Diphtheria Vaccine: Yes Current Tetanus Diphtheria and Acellular Pertussis (TDAP): Yes - Medical/Surgical History Hx Asthma: No Hx Chronic Respiratory Disease: No Hx Diabetes: No Hx Cardiac Disease: No Hx Renal Disease: No Hx Cirrhosis: No Hx Alcoholism: No Hx HIV/AIDS: No Hx Splenectomy or Spleen Trauma: No Other PMH: ovarian cyst removal, - Social History Smoking Status: Never smoked - Physical Exam Exam: General Appearance: Obese female, no acute distress Eyes: Pupils equal and round no pallor or injection ENT, Mouth: Mucous membranes moist Respiratory: There are no retractions, lungs are clear to auscultation Cardiovascular: Regular rate and rhythm Gastrointestinal: Abdomen is soft and nontender, no masses, bowel sounds normal Neurological: A&O, normal motor function, normal sensory exam, normal cranial nerves Skin: Warm and dry, no rashes Musculoskeletal: Neck is supple nontender Extremities: symmetrical, full range of motion Psychiatric: Patient is oriented X 3, there is no agitation, flat affect, endorses some symptoms of paranoid delusions Constitutional: Initial Vital Signs Temperature (C) 37.1 C 12/09/18 10:10 Heart Rate 85 12/09/18 10:10 Respiratory Rate 16 12/09/18 10:10 Blood Pressure 116/82 H 12/09/18 10:10 O2 Sat (%) 96 12/09/18 10:10 O2 Delivery Mode Room Air Allergies/Adverse Reactions: No Known Allergies Allergy (Verified 12/09/18 10:09) Medical Decision Making ED Course/Re-evaluation: Patient presents the emergency department with 1 month of heavy vaginal bleeding. The patient is noted to be hemodynamically stable. She is not . She has no abdominal tenderness on exam. The patient also has been having some paranoid delusions over the past week. There is no history of drug or alcohol abuse. She has a history of intermittent mild psychiatric symptoms in the past which she has not sought care for. Regarding the patient's vaginal bleeding I do feel that she can follow up with a pipe stripper as an outpatient. She has been given a referral to [facility] to reestablish primary care. The patient was evaluated by the mental health team here in the emergency department. The patient does not meet criteria for an involuntary psychiatric hold. She has been provided outpatient resources. Differential Diagnosis: Differential diagnosis considered includes ectopic , critical anemia, ovarian torsion, ovarian cyst, urinary tract infection, psychosis, bipolar mood disorder, substance abuse - Data Points Laboratory Results: Laboratory Results 12/09/18 10:55 12/09/18 10:55 12/09/18 12/09/18 12/09/18 11:10 10:55 10:55 WBC RBC Hgb Hct MCV MCH MCHC RDW Plt Count MPV Neut % (Auto) Lymph % (Auto) [place] % (Auto) Eos % (Auto) Baso % (Auto) Nucleat RBC Rel Count Absolute Neuts (auto) Absolute Lymphs (auto) Absolute Monos (auto) Absolute Eos (auto) Absolute Basos (auto) Absolute Nucleated RBC Immature Gran % Immature Gran # Sodium 141 mEq/L mEq/L (135-145) Potassium 4.5 mEq/L mEq/L (3.5-5.2) Chloride 107 mEq/L mEq/L (97-110) Carbon Dioxide 24 mEq/l mEq/l (22-31) Anion Gap 10 mEq/L mEq/L (6-14) BUN 14 mg/dL mg/dL (7-23) Creatinine 0.9 mg/dL mg/dL (0.6-1.0) Estimated GFR > 60 Glucose 103 mg/dL H mg/dL (70-100) Calcium 9.9 mg/dL mg/dL (8.5-10.4) Beta HCG, Qual NEGATIVE Urine Opiates Screen NEGATIVE (NEGATIVE) Urine Barbiturates NEGATIVE (NEGATIVE) Ur Phencyclidine Scrn NEGATIVE (NEGATIVE) Ur Amphetamine Screen NEGATIVE (NEGATIVE) U Benzodiazepines Scrn NEGATIVE (NEGATIVE) Urine Cocaine Screen NEGATIVE (NEGATIVE) U Marijuana (THC) Screen NEGATIVE (NEGATIVE) Ethyl Alcohol < 10 mg/dL mg/dL (0-10) 12/09/18 10:55 WBC 7.80 10^3/uL 10^3/uL (3.80-9.50) RBC 5.34 10^6/uL H 10^6/uL (4.18-5.33) Hgb 14.5 g/dL g/dL (12.6-16.3) Hct 46.5 % % (38.0-47.0) MCV 87.1 fL fL (81.5-99.8) MCH 27.2 pg L pg (27.9-34.1) MCHC 31.2 g/dL L g/dL (32.4-36.7) RDW 14.2 % % (11.5-15.2) Plt Count 358 10^3/uL 10^3/uL (150-400) MPV 9.6 fL fL (8.7-11.7) Neut % (Auto) 65.1 % % (39.3-74.2) Lymph % (Auto) 27.1 % % (15.0-45.0) [place] % (Auto) 5.8 % % (4.5-13.0) Eos % (Auto) 1.0 % % (0.6-7.6) Baso % (Auto) 0.6 % % (0.3-1.7) Nucleat RBC Rel Count 0.0 % % (0.0-0.2) Absolute Neuts (auto) 5.08 10^3/uL 10^3/uL (1.70-6.50) Absolute Lymphs (auto) 2.11 10^3/uL 10^3/uL (1.00-3.00) Absolute Monos (auto) 0.45 10^3/uL 10^3/uL (0.30-0.80) Absolute Eos (auto) 0.08 10^3/uL 10^3/uL (0.03-0.40) Absolute Basos (auto) 0.05 10^3/uL 10^3/uL (0.02-0.10) Absolute Nucleated RBC 0.00 10^3/uL 10^3/uL (0-0.01) Immature Gran % 0.4 % % (0.0-1.1) Immature Gran # 0.03 10^3/uL 10^3/uL (0.00-0.10) Sodium Potassium Chloride Carbon Dioxide Anion Gap BUN Creatinine Estimated GFR Glucose Calcium Beta HCG, Qual Urine Opiates Screen Urine Barbiturates Ur Phencyclidine Scrn Ur Amphetamine Screen U Benzodiazepines Scrn Urine Cocaine Screen U Marijuana (THC) Screen Ethyl Alcohol Medications Given: Discontinued Medications Sodium Chloride (Ns) 1,000 mls @ 0 mls/hr IV EDNOW ONE; Wide Open PRN Reason: Protocol Stop: 12/09/18 10:27 Last Admin: 12/09/18 11:32 Dose: 1,000 mls Ondansetron HCl (Zofran) 4 mg IVP EDNOW ONE Stop: 12/09/18 12:10 Last Admin: 12/09/18 12:10 Dose: 4 mg Departure - Departure Disposition: Home, Routine, Self-Care Clinical Impression: Vaginal bleeding Condition: Good Instructions: Dysfunctional Uterine Bleeding (ED) Additional Instructions: Regarding your uterine bleedin. Please schedule a follow-up appointment with a pipe stripper you have been referred to for evaluation of your abnormal bleeding. 2. Please return to the emergency department for any heavy bleeding, lightheadedness or other concerns. 3. You have been given the contact number for [facility] to establish local primary care. Regarding your mental health: 1. Please follow-up with the mental health resources provided in the ED today. 2. [facility] does operate a 18/02 psychiatric crisis unit located at [address] [place] [address]. The telephone number for the 24 hour crisis center is [phone]. 3. Please return to the ED if you are feeling suicidal, having thoughts of harming yourself/others or should you feel unsafe or have worsening symptoms. Referrals: Aubrey Mcintyre MD [Medical Doctor] - As per Instructions [facility],. [Clinic] - As per Instructions [facility] [[facility]] - As per Instructions
[2018-12-09 11:10] LABS: PLATELET COUNT 358 10^3/uL (150-400)
[2018-12-09] MEDS ORDERED: ONDANSETRON 4 MG/2 ML VIAL ONE (12:08)
[2018-12-09] MEDS ORDERED: ONDANSETRON 4 MG/2 ML VIAL IVP ONE (12:09)
[2018-12-09 13:46] VITALS: BP 142/85
--- NOTE | 2018-12-09 14:37 | ASMTTLCEVL ---
TLC Evaluation - Basic Information Evaluation Start Date and 12/09/2018 12:00 PM Time Hospital Status Answers: Voluntary Patient statement Notes: " Ivette told me there was a creepy tramaine in [place] and I was scared, but if it's needed, I will defend myself." Narrative Notes: Pt is a 23 year old female presented to [facility] ed initially for uterine bleeding. Pt reported that she has been experiencing paranoia and reported that she is afraid to be alone. She states she will hide in the closet at home and is afraid to be alone. Pt states, " I have been this way my whole life. I like to be with people." Pt reports she has a news tena on her phone and when she reads the news, " I get really scared." When this law writer entered the room and explained the process, pt stated she was going to throw up and started to cry. Pt stated, " I thought you were going to send me to the mental hospital." Pt's family friend Ivette is with her. Pt stated, " I'm not a danger to myself. I'm not." Ivette explained pt is developmentally disabled and functions at the 3rd grade level. This law writer explained to pt that she does not have to answer any questions that she is not comfortable answering. At that point, pt cooperated with the evaluation process. Pt answered questions appropriately. Pt appeared to have below avergae intelligence but appeared to have good insight. Pt reported she feels afraid often and does not like to go outside by herself because she is afraid someone will hurt her and feels this way frequently. Pt's friend Ivette who is her in the emergency room with pt stated pt also reports that pt believes boyfriends family is poisoning her and that pt has reported that she experiences AH and belives her co-workers are talking about her. Pt states, " I feel like people are talking about me at work. I do try and challenge that thought though and think maybe that isn't true." Pt reports that since she has been at the hospital she has not heard any voices and she feel ssafe. Diagnosis History Notes: Pt stated she is not sure if she has been diagnosed with any psychiatric disorder but reports she was in special ed her entire childhood and stated she has difficulty "processing." Prior suicide attempts Notes: Pt denied any prior suicide attempts and stated she is never been suicidal and denies SI currently. Prior hospitalizations Notes: Pt reported a prior hospitalization at [facility] in 2016. Pt stated she was hospitalzed for 3 days. Treatment Responses Notes: Pt stated she did not have a good experience while in he hospital and stated, " There were a lot of people screaming." History of violence Notes: Pt denied any HI, hx of aggression. Pt reported, " In 2016, I lost my virginity to a boyfriend and it triggered my emotions." Pt stated, " I don't think it was a good relationsip but I am away from him and he is away from me and I am trying to better my life now." Therapist: None Psychiatrist: None Medications (name, dosage, route, freq uency) Notes: None reported Allergies/Reaction Notes: Nka Sleep Notes: Pt reported her sleep as "jamil edgy" and stated She does not feel like she is getting enough sleep. Appetite Notes: Pt reported her appetite varies. At times it is normal, other times it is decreased. Medical/Surgical history Notes: Pt stated in July 2018, she had an ovarian cyst removed, In 2015, pt had a cat scan and she was told that she had a stroke at some point. Substance use history (frequency, intensity, his tory, duration) Notes: Pt denied any substance use whatsoever. Pt stated, " I had a annabel on my 23st birthday." Utox was negative for all substances and bal was .0. Family composition Notes: Pt stated she has 1 bov who is 26 years an 18 year old sister and a 16 year old sister. Pt's mother lives in [place] ad her father lives in [place]. Pt reported her mother is supportive however, pt's friend Ivette reported that pt's mother, " is not supportive at all and has refused to care for pt. Family psychiatric/substance abuse history Notes: Pt reported her maternal mother "was in a mental hospital." Pt stated she does not know what for. Developmental history Notes: Pt reports she was in special education her entire schooling. Pt reported osmar she was premature and stated, " I was on oxygen when I was a baby and my mom had to fly [facility] to [facility] to save my life." Pt denied any childhood abuse but stated, " I know people hurt my mom and my grandmother." Pt stated she had a happy childhood and stated, " My mom always gave us everything." Abuse concerns Answers: None Marital status/children Notes: Unmarried, no children. Living situation Notes: . Pt lives with her boyfriend in [place] who also has a developmental disabiltiy and functions at a 6th grade level. Pt's boyfriend's grandfather also lives with them. Sexual history/orientation Notes: Pt identiies as heterosexual. Peer support/family strengths Notes: Pt reported she has a good support system and has good friends Education level/history Notes: Pt stated she graduated [employer] 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 Pt's friend Ivette stated that she does very well at her job and her clinical education manager really values her. Notes: NOne Legal Notes: None reported. Mu-Ism/Spiritual Notes: None that would intefere with tx. Leisure Notes: Pt stated she enjoys bowling and cooking and being with her family. Collateral Notes: Friend-Ivtete Patient's strengths Answers: Artistic/Creative/Musical (Please select at least TWO strengths): Supportive/Compassionate TLC Evaluation - Mental Status Exam Appearance: Answers: Appropriate Clean Eye Contact: Answers: Intermittent Mood: Answers: Sad Affect: Answers: Anxious Fearful Sad Tearful Behavior: Answers: Cooperative Crying Fearful Passive Speech: Answers: Relevant Logical Clear Coherent Soft Thought Process: Answers: Organized Oriented Alert Intact Anxiety Signs/Symptoms Answers: Generalized Anxiety Hallucinations: Answers: Auditory Delusions: Answers: Paranoid Ideation Pt reported to have Answers: No suicidal/self-injuring ideation/behavior? Pt reported to be making Answers: No suicidal/self-injuring threats? Pt reported to have Answers: No aggression/assault ideation/behavior? Pt reported to be making Answers: No aggression/assault threats? Ideation/behavior is Answers: No chronic? Patient has a specific Answers: No plan? Pt has access to means to Answers: No execute the plan? Ideation involves Answers: No serious/lethal intent? Ideation has Answers: No delusional/hallucinatory content? History of Answers: No aggressive/assaultive ideation, behavior, or threats? History of serious Answers: No physical harm to self/others while in treatment setting? TLC Evaluation - Suicide/Homicide Risk Suicide Risk Factors: Answers: None Homicide/violence risk Answers: None factors: Current Suicidal Answers: No Ideation? Current Suicidal Ideation Answers: No in the Past 48 Hours? Current Suicidal Ideation Answers: No in the Past Month? Current Suicidal Answers: No Ideation, Worst Ever? Suicide Internal Answers: Absence of Psychosis Protective Factors: Suicide External Answers: Positive Therapeutic Protective Factors: Relationships Social Support Ranking of patient's Answers: Low suicidal risk: Ranking of patient's Answers: Low homicidal risk: TLC Evaluation - Wrap-up AXIS I Diagnosis (include DSM-V and ICD-10 codes), must also be entered in [employer], which is the source of truth. 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 Date Signed: 12/09/2018 02:36 PM Electronically Signed By:Remedios Szymanski
--- NOTE | 2018-12-09 14:42 | ASMTTCLDSP ---
TLC Discharge Disposition Disposition: Answers: Discharge If Answers: Yes DISCHARGED: Patient/family given suicide hotline info & SAMHSA brochure? Disposition Notes: Notes: Pt was given resources for [facility], [facility] and [facility]. Ivette stated she will have boyfriends family assist pt in getting in contact with [facility] if she needs help. Pt was also given the number/hours for TLC is she has any questions following discharge. Discharge Concerns/Recommendations: Notes: In consultation with [facility] ED physician, Akash Eaton MD, and on-call psychiatrist, Cesario Davey MD, both concurred that pt does not appear to meet 27-65 criteria requiring psychiatric hospitalization as pt does not appear to be an imminent risk of harm to self/others/gravely disabled due to a mental illness condition. Date Signed: 12/09/2018 02:41 PM Electronically Signed By:Remedios Szymanski
--- NOTE | 2018-12-09 15:47 | ASMTCMCOM ---
CM Note CM Note Notes: CM asked to meet with patient regardng follow up with scheduling appointment at [facility] to establish primary care. This CM left VM on the backline at [facility] and did not receive an answer when calling the main clinic number [phone]. I have confirmed patient's contact [phone] and assured her that I would attempt to schedule an appointment for her at the clinic and let her know the day and time-her preference being any Saturday. I also instructed patient to call and schedule the appointment as well assuring her that CM would provide the clinic with details re her ER visit I have contacted Christiane at [facility] [phone] and scheduled an appointment with Dr. Gore (patient's [employer] DIRECTOR/surgeon) for december 19 at 1115. Patient is aware that she will still need to follow up and establish a PCP for continued follow up. This CM was able to reach Breanna at [facility] after patient was discharged from the ER. per Breanna, patient will need to contatc Medicaid directly to request care to be transferred from [facility]. Breanna able to see with patient's Medicaid number that she is in the system at this time. I have contatced patient and provided her with the [place] Medicaid number [id number] and explained that she may only have one Medicaid provider for PCP and that currently this is listed as . patient verbalizes understanding and states that she will call Medicaid and then call [facility] to get scheduled. CM phone number provided to patient for follow up or questions as needed. CM available to send ER report to [facility] and assist with scheduling for patient if needed. Date Signed: 12/09/2018 03:46 PM Electronically Signed By:Joan Fowler RN
== END 2018-12-09 14:20 | disposition home or self-care (01) ==
DX: N93.8 Other specified abnormal uterine and vaginal bleeding (principal); R41.0 Disorientation, unspecified
CPT/HCPCS: 80305; 96374; G0480; J2405